=== PATIENT | male | born 1975 | race Caucasian/White ===

== ENCOUNTER 2017-06-16 17:29 | Emergency (ER) | payer MEDICAID ==
[~2017-06-16] VITALS: Ht 182.9 cm; Wt 81.1 kg
[2017-06-16] MEDS ORDERED: ketorolac trometh inj. 60 MG/2 ML VIAL IM ONE (19:20)
[2017-06-16 20:11] VITALS: BP 126/87
== END 2017-06-16 20:13 | disposition home or self-care (01) ==
LOC: ER 17:30
DX: M25.561 Pain in right knee (principal); J45.909 Unspecified asthma, uncomplicated; Z88.2 Allergy status to sulfonamides; Z88.1 Allergy status to other antibiotic agents
CPT/HCPCS: 29505; 73564; 96372; 99284; J1885

== ENCOUNTER 2017-10-28 10:20 | Emergency (ER) | payer MEDICAID ==
[~2017-10-28] VITALS: Ht 182.9 cm; Wt 89.8 kg
== END 2017-10-28 12:43 | disposition home or self-care (01) ==
LOC: ER 10:20
DX: S90.112A Contusion of left great toe without damage to nail, initial encounter (principal); J45.909 Unspecified asthma, uncomplicated; Z98.890 Other specified postprocedural states; Z88.2 Allergy status to sulfonamides; X58.XXXA Exposure to other specified factors, initial encounter; Y93.89 Activity, other specified; Y92.89 Other specified places as the place of occurrence of the external cause; Y99.8 Other external cause status
CPT/HCPCS: 99281

== ENCOUNTER 2018-04-30 10:19 | Emergency (ER) | payer MEDICAID ==
[~2018-04-30] VITALS: Ht 182.9 cm; Wt 88.6 kg
[2018-04-30 10:51] VITALS: BP 138/76
[2018-04-30] MEDS ORDERED: GUAI-178 PO (12:03)
[2018-04-30] MEDS ORDERED: AZIT250T PO (12:03)
== END 2018-04-30 12:18 | disposition home or self-care (01) ==
LOC: ER 10:20
DX: J20.9 Acute bronchitis, unspecified (principal); J45.909 Unspecified asthma, uncomplicated; M19.90 Unspecified osteoarthritis, unspecified site; Z88.2 Allergy status to sulfonamides; Z88.1 Allergy status to other antibiotic agents
CPT/HCPCS: 99281

== ENCOUNTER 2021-05-29 10:02 | Outpatient (CLI) | payer MEDICARE, MEDICAID ==
[~2021-05-29 10:02] MED LIST: ALBU8HFA PO; ASPI-1 PO; BUDE10.2 INH; DICLOFENAC SODIUM TP; LORA10TA7 PO
[2021-05-29 10:30] LABS: ABG BASE EXCESS -0.7 mmol/L (-2.0-2.0); ABG HCO3 22.8 mmol/L (22.0-26.0); ABG OXYGEN SATURATION 95.3 % (94-97); ABG PCO2 (T) 34.7 mmHg (35.0-48.0); ALLEN'S TEST POSITIVE; FCOHb 0.5 % (0.0-3.9); FMetHb 0.3 % (0.0-1.5); FO2Hb 94.5 % (94-97); TOTAL HEMOGLOBIN 14.7 G/dl (14.0-18.0)
== END 2021-05-29 23:59 | disposition home or self-care (01) ==
LOC: RT 10:02
PROVIDERS: ATTEND Internal Medicine Cardiovascular Disease
DX: R94.2 Abnormal results of pulmonary function studies (principal); J44.9 Chronic obstructive pulmonary disease, unspecified; R05.9 Cough, unspecified; R06.02 Shortness of breath
CPT/HCPCS: 36600; 82803; 85018; 94060; 94727; 94729; 94760

== ENCOUNTER 2021-11-04 08:52 | Day surgery (SDC) | payer BC, MEDICAID ==
[2021-10-30 14:16] LABS: BASOPHILS # (AUTO) 0.1 X10'3 (0-0.2); BASOPHILS % (AUTO) 0.7 % (0-1); EOSINOPHILS % (AUTO) 0.4 % (0-6); LYMPHOCYTES % (AUTO) 12.1 % (21-51); MEAN CORPUSCULAR HEMOGLOBIN 28.8 PG (27.0-31.0); MEAN CORPUSCULAR HGB CONC 33.5 g/dL (33.0-36.5); MEAN CORPUSCULAR VOLUME 85.8 FL (78-98); MONOCYTES # (AUTO) 0.6 X10'3 (0-0.9); MONOCYTES % (AUTO) 6.6 % (2-12); NEUTROPHILS # (AUTO) 6.9 X10'3 (1.8-7.7); NEUTROPHILS % (AUTO) 80.2 % (42-75); PRE OP HEMATOCRIT 43.9 % (42.0-52.0); PRE OP HEMOGLOBIN 14.7 g/dL (14.0-17.9); PRE OP PLATELET COUNT 253 X10'3 (140-440); RED BLOOD COUNT 5.12 X10'6 (4.70-6.10); RED CELL DISTRIBUTION WIDTH 15.6 % (11.5-14.5)
[2021-10-30 14:25] LABS: PRE OP PROTIME 10.5 SECONDS (9.0-12.0)
[2021-10-30 14:34] LABS: ALBUMIN 4.2 G/DL (3.4-5.0); ALBUMIN/GLOBULIN RATIO 1.2 (1.1-1.5); ALKALINE PHOSPHATASE 97 IU/L (46-116); BLOOD UREA NITROGEN 4 MG/DL (7-18); BUN/CREATININE RATIO 4.9 (5.4-32.0); CALCIUM 8.6 MG/DL (8.5-10.1); CHLORIDE 103 MMOL/L (99-107); CREATININE 0.81 MG/DL (0.60-1.10); PRE OP ALT 45 U/L (30-65); PRE OP ANION GAP 7 (8-16); PRE OP AST 24 U/L (10-37); PRE OP BILIRUB, TOTAL 0.6 MG/DL (0.0-1.0); PRE OP GLUCOSE 113 MG/DL (70-104); PRE OP POTASSIUM 3.7 MMOL/L (3.4-5.1); PRE OP SODIUM 138 MMOL/L (135-145); TOTAL CARBON DIOXIDE 28.1 MMOL/L (24-32); TOTAL PROTEIN 7.8 G/DL (6.4-8.2); eGFR > 90 ML/MIN
[~2021-11-04] VITALS: Ht 182.9 cm; Wt 98.3 kg
[2021-11-04] VITALS (15 sets, daily range): BP systolic 103–128; BP diastolic 66–91
[~2021-11-04 08:52] MED LIST changes: -ASPI-1 PO; +CELE-85 PO; -DICLOFENAC SODIUM TP; +GABA300C PO; +OMEP20CA16 PO; +ceFAZolin inj. 2,000 MG in dextrose 5%-water 100 ML IV ONE; +famotidine 20mg tablet PO ONE; +ringers solution, lacted 1,000 ML IV SCH; +tranexamic acid 650mg tablet PO ONE; +vancomycin 1,500 MG in NS 300ml IV soln IV ONE; +vancomycin/NS 1 GM in NS 250 ML IV ONE
--- NOTE | 2021-11-04 10:00 | NUR ---
PT CSM INTACT TO BILATERAL LOWER EXT, PT ABLE TO COMPLETE ALL 5 SHOWERS AND OINTMENT, WATCHED ONLINE INFO REGARDING SURGERY. 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
[2021-11-04] MEDS ORDERED: ketorolac trometh. 30mg/ml inj. ONE (12:40)
[2021-11-04] MEDS ORDERED: ROPIVAcaine 0.5% (5mg/ml) 30ml vial ONE ×2 (12:40→14:04)
[2021-11-04] MEDS ORDERED: MIDAZolam 1mg/ml 10ml vial ONE (13:02)
[2021-11-04] MEDS ORDERED: fentaNYL/PF 50MCG/1 ML 2ML syringe ONE (13:02)
[2021-11-04] MEDS ORDERED: morphine 2 MG/ML inj. syringe IV PRN (14:15)
[2021-11-04] MEDS ORDERED: ringers solution, lacted 1,000 ML IV SCH (14:15)
[2021-11-04] MEDS ORDERED: meperidine/PF 25mg/ml syringe IV PRN ×3 (14:15)
[2021-11-04] MEDS ORDERED: proCHLORperazine 10 MG/2 ml inj IV PRN (14:15)
[2021-11-04] MEDS ORDERED: ondansetron/PF 4mg/2ml inj IV PRN ×2 (14:15→15:30)
[2021-11-04] MEDS ORDERED: morphine 4 MG/ML inj SYRINge IV PRN (14:15)
--- NOTE | 2021-11-04 15:12 | NUR ---
Received from OR via BED, accompanied by Anesthesiologist and report given by DR. HERRERA Anesthesiologist. PATIENT WAKING UP, NO S/S OF PAIN, V/S WNL, SCD ON, 18G TO trae JULES to LEFT KNEE CDI. Addendum: 11/04/21 at 1533 by Mark Craig RN Amended: Links added.
[2021-11-04] MEDS ORDERED: naloxone 0.4 mg/ml inj IV PRN (15:30)
[2021-11-04] MEDS ORDERED: diphenhydrAMINE 25mg capsule PO PRN ×2 (15:30)
[2021-11-04] MEDS ORDERED: HYDROmorphone inj. 0.5 MG/0.5 ML DISP.SYRIN IV PRN (15:30)
[2021-11-04] MEDS ORDERED: acetaminophen 325mg tablet PO PRN (15:30)
[2021-11-04] MEDS ORDERED: oxyCODONE IR 5mg (immed. release) tablet PO PRN (15:30)
[2021-11-04] MEDS ORDERED: magnesium hydroxide 30ml (MOM) UD suspension PO PRN (15:30)
[2021-11-04] MEDS ORDERED: bisacodyl 10mg suppository rectal RC PRN (15:30)
[2021-11-04] MEDS ORDERED: HYDROmorphone 1 mg/ml syringe IV PRN (15:30)
--- NOTE | 2021-11-04 16:07 | NUR ---
PATIENT HAS MET ALL CRITERIA FOR TRANSFER TO ORTHO FLOOR. VSS. DRESSINGS INTACT. BED LOW, CALL LIGHT PRESENT AND 2 RAILS UP. RN PRESENT TO ACCEPT CARE OF PATIENT AND REPORT HAS BEEN CALLED. ALL QUESTIONS ANSWERED TO ACCEPTING RN. Addendum: 11/04/21 at 1617 by Mark Craig RN Amended: Links added.
[2021-11-04] MEDS: ceFAZolin/D5W- 1GM premix 50 ML IV SCH (17:50)
--- NOTE | 2021-11-04 18:08 | NUR ---
Report to Johana JACOBS
[2021-11-04] MEDS: albuterol 2.5 MG/3 ML nebule NEB SCH (19:53)
[2021-11-04] MEDS: budesonide 0.5mg/2ml UD nebule IH SCH (19:54)
[2021-11-04] MEDS ORDERED: vancomycin/NS 1 GM ADD-VANTAGE 250 ML IV SCH (20:00)
[2021-11-04] MEDS: acetaminophen 325mg tablet PO SCH (20:24)
[2021-11-04] MEDS: potassium cl 20mEq in 1/2 NS 1,000 ML IV SCH ×2 (20:24→23:30)
[2021-11-04] MEDS: gabapentin 300mg capsule PO SCH (20:24)
[2021-11-04] MEDS ORDERED: sennosides 8.6mg tablet PO SCH (21:00)
[2021-11-05] MEDS: ceFAZolin/D5W- 1GM premix 50 ML IV SCH (00:03)
[2021-11-05] MEDS: albuterol 2.5 MG/3 ML nebule NEB SCH ×3 (02:00→14:00)
[2021-11-05 02:21] VITALS: BP 115/75
[2021-11-05] MEDS: acetaminophen 325mg tablet PO SCH ×3 (02:34→14:17)
[2021-11-05] MEDS: oxyCODONE IR 5mg (immed. release) tablet PO PRN ×3 (05:39→14:17)
[2021-11-05 06:25] VITALS: BP 122/76
--- NOTE | 2021-11-05 06:26 | NUR ---
Received report from REYNALDO Vaughn
[2021-11-05 06:40] LABS: BASOPHILS # (AUTO) 0.1 X10'3 (0-0.2); BASOPHILS % (AUTO) 0.6 % (0-1); EOSINOPHILS % (AUTO) 0.3 % (0-6); HEMATOCRIT 36.1 % (42.0-52.0); HEMOGLOBIN 12.2 g/dl (14.0-17.9); LYMPHOCYTES # (AUTO) 0.7 X10'3 (1.1-4.8); LYMPHOCYTES % (AUTO) 8.5 % (21-51); MEAN CORPUSCULAR HEMOGLOBIN 29.3 PG (27.0-31.0); MEAN CORPUSCULAR HGB CONC 33.9 g/dL (33.0-36.5); MEAN CORPUSCULAR VOLUME 86.3 FL (78-98); MEAN PLATELET VOLUME 9.2 FL (7.4-10.4); MONOCYTES # (AUTO) 0.8 X10'3 (0-0.9); MONOCYTES % (AUTO) 9.2 % (2-12); NEUTROPHILS # (AUTO) 6.6 X10'3 (1.8-7.7); NEUTROPHILS % (AUTO) 81.4 % (42-75); PLATELET COUNT 213 X10'3 (140-440); RED BLOOD COUNT 4.18 X10'6 (4.70-6.10); RED CELL DISTRIBUTION WIDTH 15.3 % (11.5-14.5); WHITE BLOOD COUNT 8.2 X10'3 (4.5-11.0)
[2021-11-05 06:58] LABS: ANION GAP 6 (8-16); CHLORIDE 105 MMOL/L (99-107); POTASSIUM 3.5 MMOL/L (3.5-5.1); SODIUM 139 MMOL/L (135-145); TOTAL CARBON DIOXIDE 27.7 MMOL/L (24-32)
[2021-11-05] MEDS: budesonide 0.5mg/2ml UD nebule IH SCH (07:22)
[2021-11-05] MEDS: potassium cl 20mEq in 1/2 NS 1,000 ML IV SCH ×2 (07:30→15:30)
[2021-11-05] MEDS ORDERED: pantoprazole 40mg Tablet.DR PO SCH (08:00)
[2021-11-05] MEDS ORDERED: loratadine 10mg tablet PO SCH (08:00)
[2021-11-05] MEDS ORDERED: celeCOXIB 100mg capsule PO SCH (08:00)
[2021-11-05] MEDS ORDERED: aspirin 325mg tablet PO SCH (08:30)
[2021-11-05] MEDS: gabapentin 300mg capsule PO SCH ×2 (08:36→14:17)
[2021-11-05 10:27] VITALS: BP 120/79
--- NOTE | 2021-11-05 16:29 | NUR ---
Patient discharged to home via wheelchair to private vehicle with [facility] worker dean. All instructions given to patient and he verbalized understanding. 20 gauge iv removed cannula intact no s/s of phlebitis.
[2021-11-06] MEDS ORDERED: acetaminophen 325mg tablet PO PRN (15:30)
== END 2021-11-05 16:28 | disposition home health service (06) ==
LOC: PACU OUT 08:52 → ORTHO 4S 10:50 → EDSTATUS 14:00 → PAS IN 16:12 → ORTHO 4S 16:12 → PACU OUT 11-05 16:28
PROVIDERS: ATTEND Orthopaedic Surgery
DX: M17.12 Unilateral primary osteoarthritis, left knee (principal); J45.909 Unspecified asthma, uncomplicated; G80.9 Cerebral palsy, unspecified; G89.18 Other acute postprocedural pain; E66.9 Obesity, unspecified; Z68.28 Body mass index [BMI] 28.0-28.9, adult; Z79.899 Other long term (current) drug therapy; Z79.01 Long term (current) use of anticoagulants; Z88.1 Allergy status to other antibiotic agents; Z88.2 Allergy status to sulfonamides; Z98.890 Other specified postprocedural states; Z72.89 Other problems related to lifestyle; Z96.651 Presence of right artificial knee joint
CPT/HCPCS: 27447; 36415; 64447; 76942; 80051; 80053; 82948; 85025; 85610; 85730; 87081; 94640; 94760; 97116; 97161; 97530; C1758; C1776; J0690; J1885; J2250; J2795; J3010; J3370; J3480; J7030; J7040; J7060; J7120; Z7506; Z7508; Z7512; A4215; A7000; G0378

== ENCOUNTER 2023-12-18 19:37 | Emergency (ER) | payer BC, MEDICAID ==
[~2023-12-18] VITALS: Ht 185.4 cm; Wt 96.9 kg
[~2023-12-18 19:37] MED LIST changes: +CELE-127 PO; -CELE-85 PO; -ceFAZolin inj. 2,000 MG in dextrose 5%-water 100 ML IV ONE; -famotidine 20mg tablet PO ONE; -ringers solution, lacted 1,000 ML IV SCH; -tranexamic acid 650mg tablet PO ONE; -vancomycin 1,500 MG in NS 300ml IV soln IV ONE; -vancomycin/NS 1 GM in NS 250 ML IV ONE
[2023-12-18] MEDS: cyclobenzaprine 10mg tablet PO ONE (20:06)
[2023-12-18] MEDS: HYDROcodone/acetaminophen 5mg/325mg tablet PO ONE (20:07)
[2023-12-18] MEDS: dexamethasone sod phosphate 10mg/ml inj IM STA (20:08)
[2023-12-18] MEDS: ketorolac trometh. 30mg/ml inj. IM ONE (20:09)
[2023-12-18] MEDS ORDERED: CYCL-1 PO (20:36)
[2023-12-18] MEDS ORDERED: LIDO700A32 TOP (20:36)
[2023-12-18 20:58] VITALS: BP 118/90; PULSE 95; RESP 16; TEMP 99; O2SAT 96
== END 2023-12-18 21:03 | disposition home or self-care (01) ==
LOC: ER 19:37
DX: S39.012A Strain of muscle, fascia and tendon of lower back, initial encounter (principal); J45.909 Unspecified asthma, uncomplicated; M19.90 Unspecified osteoarthritis, unspecified site; Z88.2 Allergy status to sulfonamides; Z79.899 Other long term (current) drug therapy; Z79.2 Long term (current) use of antibiotics; X58.XXXA Exposure to other specified factors, initial encounter; Y93.89 Activity, other specified; Y92.89 Other specified places as the place of occurrence of the external cause; Y99.8 Other external cause status
CPT/HCPCS: 72100; 96372; 99284; J1100; J1885

== ENCOUNTER 2024-09-03 15:38 | Emergency (ER) | payer BC, MEDICAID ==
[~2024-09-03] VITALS: Ht 185.4 cm; Wt 73.8 kg
[~2024-09-03 15:38] MED LIST changes: +CYCL-1 PO; +LIDO700A32 TOP
[2024-09-03 15:43] VITALS: BP 140/85; PULSE 92; TEMP 98.7; O2SAT 97
--- NOTE | 2024-09-03 16:43 | RADIOLOGY REPORT ---
EXAM: DI SHOULDER, COMPLETE (MIN 2 VWS) CLINICAL HISTORY: shoulder pain COMPARISON: None TECHNIQUE: DI SHOULDER, COMPLETE (MIN 2 VWS) Findings/Impression: 2 views of the left shoulder. There is no evidence of an acute fracture, dislocation, blastic, or lytic lesions. No radiopaque foreign bodies. No joint effusion or superficial soft tissue abnormalities.
[2024-09-03 16:55] VITALS: RESP 16
[2024-09-03] MEDS: HYDROcodone/acetaminophen 10/325mg tab PO ONE (16:55)
[2024-09-03] MEDS ORDERED: HYDR-3973 PO (16:56)
--- NOTE | 2024-09-03 16:58 | Physician Documentation ---
History of Present Illness ~ Chief Complaint: Shoulder pain Stated Complaint: SHOULDER PAIN/ Time Seen by MD: 15:52 OK to notify your PCP?: Yes Primary Medical Doctor: DR. BAIG Source: patient Mode of Arrival: POV Exam Limitations: no limitations HPI 49 y/o left handed male with left shoulder pain x 1week. States has been going to physical therapy for his shoulder pain after having rotator cuff surgery back in February of last year but states that he did something recently in his now having more pain. Pain feels like when he tore his rotator cuff. He has been taking Tylenol for his pain without relief. He was report shows he has also had a prescription for oxycodone but he states he is out of this. Prescription for oxycodone was prescribed about two weeks ago for two week supply. No arm weakness, numbness, loss of AROM. Tetanus within 5 years?: No Medication Reconciliation Allergies: Coded Allergies: Sulfa (Sulfonamide Antibiotics) (Verified Allergy, Unknown, 11/11/14) amoxicillin (Verified Allergy, Unknown, 11/11/14) Scheduled Budesonide/Formoterol Fumarate (Symbicort 160-4.5 Mcg Inhaler), 2 PUFFS INH Q12H, (Reported) Celecoxib (Celecoxib), 1 CAP PO DAILY, (Reported) Cyclobenzaprine* (Cyclobenzaprine*), 1 TAB PO HS Gabapentin (Neurontin), 300 MG PO QHS, (Reported) Lidocaine (Lidoderm), 1 PATCH TOP DAILY Loratadine (Loratadine), 1 TAB PO DAILY, (Reported) Omeprazole (Omeprazole), 1 CAP PO DAILY, (Reported) Scheduled PRN Hydrocodone Bit/Acetaminophen (Hydrocodone-Apap 10-325 Tablet), 1 TAB PO TID PRN PRN for pain albuterol inhaler (Pro-Air Inhaler), 1-2 PUFFS PO Q4H PRN for shortness of breath, (Reported) Past Medical History Past Medical History: No Pertinent History, Asthma, Arthritis Past Surgical History: orthopedic surgeries Alcohol Use: None Drug Use: none Lives with: Other Lives In: Home, Assisted Care, Other Occupation: disabled Review of Systems All Other Systems at this time: Reviewed and Negative Physical Exam Vital Signs: Temperature: 98.7, Source: Temporal, Heart Rate: 92, Respiratory Rate: 15, BP: 140/85, Pulse Oximetry: 97, Weight: 73.800 Physical Exam GENERAL: Alert, no acute distress. HEENT: NCAT, EOMI, PERRL, normal oropharynx, moist oral mucosa. NECK: Supple, trachea midline. CARDIAC: Regular rate and rhythm, no murmurs, rubs, or gallops. PV: Equal distal pulses. No lower extremity edema, cap refill less than 2 seconds. RESPIRATORY: Equal breath sounds, clear to auscultation bilaterally, no respiratory distress. MUSCULOSKELETAL: DECREASED AROM OF LEFT SHOULDER DUE TO PAIN. HOLDING SHOULDER IN ADDUCTION STATES UNABLE TO LIFT ARM OUTWARD IN ABDUCTION DUE TO PAIN. TTP OVER ANTERIOR AND POSTERIOR SHOULDER. Normal gait. NEUROLOGICAL: Awake, alert, and oriented x 3. SKIN: Warm/dry, no pallor, no rash. PSYCH: Alert and appropriate. Affect congruent with mood. Speech is clear. Good eye contact. Progress Results/Orders Results/Orders Orders - JACKSON TORRES Shoulder, Complete (Min 2 Vws) (09/03/24 16:04) Completed Orders - JACKSON TORRES Shoulder, Complete (Min 2 Vws) (09/03/24 16:04) Hydrocodone/Apap 10/325 ([place] 10/325mg (09/03/24 16:45) Medications Received in ER Medications (Trade) Dose Ordered Sig/Brady Route PRN Reason Start Time Stop Time Status Last Admin Dose Admin ([place] 10/325mg tab) 1 tab ONCE ONCE PO 09/03/24 16:45 09/03/24 16:46 DC 09/03/24 16:55 1 TAB Vital Signs 09/03/24 09/03/24 15:43 16:55 Temp 98.7 Pulse 92 Resp 15 16 B/P (MAP) 140/85 Pulse Ox 97 Medical Decision Making Differential Dx:Considerations: Include: AC separation, Adhesive capsulitis, arthritis, Bicipital tendonitis, Calcific tendonitis, Cervical disc disease, Contusion, Dislocation, Fracture: Humerus, Fracture: Scapula, Fracture: Clavicle, Gallbladder Disease, Hematoma, Impingement syndrome, Myocardial infarction, Neurovascular Injury, Rotator cuff injury, SC dislocation, Sprain, Subacromial bursitis Departure Time of Disposition: 16:57 Disposition: 01 HOME / SELF CARE / HOMELESS Impression: Primary Impression: Shoulder pain Qualified Codes: M25.511 - Pain in right shoulder Condition: Stable Discharge Instructions: Shoulder Pain, [id number] Additional Instructions: xray negative for separation or fracture f/u with pcp about MRI since you report if feels like you tore your rotator cuff muscle again do not wear sling longer than a few days as you want to be careful with prolonged immobilization due to risk for frozen shoulder return to er if worsening of symptoms Referrals: NO PRIMARY CARE PROVIDER (PCP) Prescriptions Hydrocodone Bit/Acetaminophen (Hydrocodone-Apap 10-325 Tablet) 10mg/325mg Tablet 1 TAB PO TID PRN PRN for pain for 5 Days, #15 TAB dx: shoulder pain M25.51 Prov: JACKSON TORRES 09/03/24 Education Educated: Patient, Family Educated regarding: diagnosis, treatment, need for follow up Signature Scribe Signature: Rose Attestation: JACKSON GODINEZ Sep 03, 2024 16:57
== END 2024-09-03 17:14 | disposition home or self-care (01) ==
LOC: ER 15:39
DX: M25.512 Pain in left shoulder (principal); Z88.0 Allergy status to penicillin; Z88.2 Allergy status to sulfonamides; Z88.8 Allergy status to other drugs, medicaments and biological substances
CPT/HCPCS: 73030; 99283; A4565

== ENCOUNTER 2025-01-25 19:10 | Emergency (ER) | payer BC, MEDICAID ==
[~2025-01-25] VITALS: Ht 185.4 cm; Wt 95.4 kg
[~2025-01-25 19:10] MED LIST changes: +LIDO-52 TOP; -LIDO700A32 TOP
[2025-01-25 19:19] VITALS: BP 126/98; PULSE 95; O2SAT 99
--- NOTE | 2025-01-25 22:44 | Physician Documentation ---
History of Present Illness ~ Chief Complaint: Arm Pain Stated Complaint: ARM PAIN Time Seen by MD: 22:06 Primary Medical Doctor: DR. BAIG HPI Is a 50-year-old male that presents to the emergency department for evaluation of right shoulder pain times several days. He reports he has a history of cerebral palsy also has a history of left rotator cuff injury. Reports that he is a patient of Dr. Marquis and is scheduled to have the left shoulder repaired. He reports that his right shoulder has started hurting and feels the exact same way as the left shoulder does currently. Patient denies any traumatic injuries has good range of motion but tenderness with arm raise. Patient denies taking any Tylenol or ibuprofen for discomfort. Tetanus within 5 years: No Medication Reconciliation Allergies: Coded Allergies: Sulfa (Sulfonamide Antibiotics) (Verified Allergy, Unknown, 11/11/14) amoxicillin (Verified Allergy, Unknown, 11/11/14) Scheduled Budesonide/Formoterol Fumarate (Symbicort 160-4.5 Mcg Inhaler), 2 PUFFS INH Q12H, (Reported) Celecoxib (Celecoxib), 1 CAP PO DAILY, (Reported) Cyclobenzaprine* (Cyclobenzaprine*), 1 TAB PO HS Gabapentin (Neurontin), 300 MG PO QHS, (Reported) Lidocaine (Lidoderm), 1 PATCH TOP DAILY Loratadine (Loratadine), 1 TAB PO DAILY, (Reported) Omeprazole (Omeprazole), 1 CAP PO DAILY, (Reported) Scheduled PRN albuterol inhaler (Pro-Air Inhaler), 1-2 PUFFS PO Q4H PRN for shortness of breath, (Reported) Past Medical History Past Medical History: No Pertinent History, Asthma, Arthritis Past Surgical History: orthopedic surgeries Alcohol Use: None Drug Use: none Lives with: Other Lives In: Home, Assisted Care, Other Occupation: disabled Review of Systems ROS As stated above in the HPI, otherwise all systems are reviewed and negative. Physical Exam Vital Signs: Temperature: 97.9, Heart Rate: 95, Respiratory Rate: 18, BP: 126/98, Pulse Oximetry: 99, Weight: 95.400 Oxygen Flow Rate: 0 Physical Exam VITALS: Reviewed and as above. GENERAL: Alert, no apparent distress. HEENT: Normocephalic, atraumatic, PERRL, EOMI, dry mucosa, no erythema RESPIRATORY: Lungs clear, normal breath sounds, no respiratory distress. CHEST: No accessory muscle use, no retractions CV: Regular rate, rhythm, no edema, no murmur, No: JVD GI: Soft, non-tender, bowels sounds present, no rebound, guarding, or rigidity BACK: No CVA tenderness, or swelling MUSCULOSKELETAL No deformities, no edema, patient is a 3 range of motion to the right shoulder, weakness with right arm raise. SKIN: Warm and dry, no rash NEURO: Oriented x4, No motor or sensory deficit PSYCH: Normal mood and affect, no agitation Progress Results/Orders Results/Orders Orders - DENISE VANEGAS [facility] Ketorolac Trometh 15mg/Ml Vial (Toradol (01/25/25 22:40) Acetaminophen 325mg Tablet (Tylenol Tabl (01/25/25 22:40) Vital Signs 01/25/25 19:19 Temp 97.9 Pulse 95 Resp 18 B/P (MAP) 126/98 Pulse Ox 99 O2 Flow Rate 0 Medical Decision Making Findings Patient presents for evaluation of pain to the right shoulder. Patient denies any traumatic injuries to the shoulder. Given history, exam and workup patient likely has tissue injury possible rotator cuff tear. I have low suspicion for fracture, dislocation, significant ligamentous injury, septic arthritis, gout flare, new autoimmune arthropathy, or gonococcal arthropathy. I have recommended the patient take ibuprofen every 6 hours for the next 24 hours to help reduce inflammation. Patient will follow up with his primary care provider. We will return to the emergency department with any worsening of his current symptoms or any additional concerning symptoms that we discussed here today i.e. swelling redness warmth increased pain fever chills inability to move the shoulder or any other concerning symptoms. Patient was provided with a Toradol injection and Tylenol here in the emergency department with good improvement. Patient will follow up with his surgeon Dr. Marquis who he is already scheduled to have his left shoulder repaired with. Tylenol ibuprofen as needed for discomfort. She was provided with Tylenol and Toradol tonight prior to discharge from the emergency department please do not take any of her medication tonight. General Diff Dx:Considerations: Include: Abrasion, Contusion, Fracture, Hematoma, Laceration, Malunion, Neurovascular injury, Open fracture, Sprain, Ulcer, Other Shoulder Diff Dx:Consideration: Include: AC separation, Adhesive capsulitis, Arthritis, Bicipital tendonitis, Calcific tendonitis, Cervical disc disease, Contusion, Dislocation, Fracture-humerus, Fracture-scapula, Fracture-clavicle, GB disease, Hematoma, Impingement syndrome, Myocardial infarction, Neurovascular injury, Open fracture-humerus, Open fracture-scapula, Open fracture-clavicle, Rotator cuff injury, SC dislocatoin, Sprain, Subacromial bursitis, Other Departure Disposition: 01 HOME / SELF CARE / HOMELESS Impression: Primary Impression: Right shoulder pain Additional Impressions: Soft tissue injury Rotator cuff dysfunction Condition: Stable Discharge Instructions: Musculoskeletal Pain Additional Instructions: Patient presents for evaluation of pain to the right shoulder. Patient denies any traumatic injuries to the shoulder. Given history, exam and workup patient likely has tissue injury possible rotator cuff tear. I have low suspicion for fracture, dislocation, significant ligamentous injury, septic arthritis, gout flare, new autoimmune arthropathy, or gonococcal arthropathy. I have recommended the patient take ibuprofen every 6 hours for the next 24 hours to help reduce inflammation. Patient will follow up with his primary care provider. We will return to the emergency department with any worsening of his current symptoms or any additional concerning symptoms that we discussed here today i.e. swelling redness warmth increased pain fever chills inability to move the shoulder or any other concerning symptoms. Patient was provided with a Toradol injection and Tylenol here in the emergency department with good improvement. Patient will follow up with his surgeon Dr. Marquis who he is already scheduled to have his left shoulder repaired with. Tylenol ibuprofen as needed for discomfort. She was provided with Tylenol and Toradol tonight prior to discharge from the emergency department please do not take any of her medication tonight. Referrals: NO PRIMARY CARE PROVIDER (PCP) Education Educated: Patient Educated regarding: diagnosis, treatment, need for follow up Signature Scribe Signature: A Attestation: Scribed for Denise Vanegas by MASOUD Hopkins . 01/25/25 22:47 DENISE VANEGAS Jan 25, 2025 22:44
[2025-01-25 22:55] VITALS: RESP 18
[2025-01-25] MEDS: ketorolac trometh 15mg/ml vial 15 MG/ML ML IM ONE (22:55)
[2025-01-25 23:17] VITALS: TEMP 97.9
== END 2025-01-25 23:17 | disposition home or self-care (01) ==
LOC: ER 19:10
DX: S46.002A Unspecified injury of muscle(s) and tendon(s) of the rotator cuff of left shoulder, initial encounter (principal); Z88.0 Allergy status to penicillin; Z88.2 Allergy status to sulfonamides; Z88.8 Allergy status to other drugs, medicaments and biological substances; X58.XXXA Exposure to other specified factors, initial encounter; Y93.89 Activity, other specified; Y92.89 Other specified places as the place of occurrence of the external cause; Y99.8 Other external cause status
CPT/HCPCS: 96372; 99283; J1885

== ENCOUNTER 2025-04-21 09:21 | Emergency (ER) | payer BC, MEDICAID ==
[~2025-04-21] VITALS: Ht 185.4 cm; Wt 99.7 kg
[2025-04-21 09:32] VITALS: TEMP 98.2
--- NOTE | 2025-04-21 09:41 | Physician Documentation ---
History of Present Illness ~ Chief Complaint: Cold, cough & congestion Stated Complaint: POSS PULMONARY EMBOLISM Time Seen by MD: 09:40 Primary Medical Doctor: DR. BAIG HPI Pleasant 50-year-old male that presents to the emergency department for evalua tion of new sore throat with hoarse voice. 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 Patient is not tachycardic in his not overtly tachypneic here in the emergency department. Patient has no chest pain. Patient has new symptoms are sore throat hoarse voice. Patient denies any other symptoms at this time. Patient denies fever chills nausea vomiting diarrhea. No other symptoms reported at this time. Medication Reconciliation Allergies: Coded Allergies: Sulfa (Sulfonamide Antibiotics) (Verified Allergy, Unknown, 04/21/25) amoxicillin (Verified Allergy, Unknown, 04/21/25) Scheduled Budesonide/Formoterol Fumarate (Symbicort 160-4.5 Mcg Inhaler), 2 PUFFS INH Q12H, (Reported) Celecoxib (Celecoxib), 1 CAP PO DAILY, (Reported) Cyclobenzaprine* (Cyclobenzaprine*), 1 TAB PO HS Gabapentin (Neurontin), 300 MG PO QHS, (Reported) Lidocaine (Lidoderm), 1 PATCH TOP DAILY Loratadine (Loratadine), 1 TAB PO DAILY, (Reported) Omeprazole (Omeprazole), 1 CAP PO DAILY, (Reported) Scheduled PRN albuterol inhaler (Pro-Air Inhaler), 1-2 PUFFS PO Q4H PRN for shortness of breath, (Reported) Past Medical History Past Medical History: No Pertinent History, Asthma, Arthritis Past Surgical History: orthopedic surgeries Alcohol Use: None Drug Use: none Lives with: Other Lives In: Home, Assisted Care, Other Occupation: disabled Review of Systems ROS As stated above in the HPI, otherwise all systems are reviewed and negative. Physical Exam Vital Signs: Temperature: 98.2, Source: Temporal, Heart Rate: 98, Respiratory Rate: 20, BP: 121/83, Pulse Oximetry: 98, Weight: 99.700 Oxygen Flow Rate: 0 Physical Exam VITALS: Reviewed and as above. GENERAL: Alert, no apparent distress. HEENT: Normocephalic, atraumatic, PERRL, EOMI, dry mucosa, mild erythema noted no tonsillar enlargement noted on examination. RESPIRATORY: Lungs clear, normal breath sounds, no respiratory distress. 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 Chest,Single View (04/21/25 09:37) Covid19 Binax Poc Result Entry (04/21/25 09:39) Urinalysis, Cult If Indicated (04/21/25 11:28) Completed Orders - DENISE VANEGAS MOLD [employer] PUSHER Chest,Single View (04/21/25 09:37) Cbc/Diff (04/21/25 09:37) Electrocardiogram (04/21/25 09:37) CMP (04/21/25 09:37) Influenza Type A&B Rapid Test (04/21/25 09:39) Vital Signs 04/21/25 04/21/25 09:32 10:00 Temp 98.2 Pulse 98 Resp 20 12 B/P (MAP) 121/83 Pulse Ox 98 O2 Flow Rate 0 Laboratory Tests Test 04/21/25 09:47 04/21/25 09:57 Influenza Type A Antigen Negative Influenza Type B Antigen Negative White Blood Count 10.1 Red Blood Count 5.40 Hemoglobin 15.8 Hematocrit 47.2 Mean Corpuscular Volume 87.5 Mean Corpuscular Hemoglobin 29.2 Mean Corpuscular Hemoglobin Concent 33.4 Red Cell Distribution Width 14.8 H Platelet Count 238 Mean Platelet Volume 8.8 Neutrophils (%) (Auto) 76.9 H Lymphocytes (%) (Auto) 12.0 L Monocytes (%) (Auto) 8.0 Eosinophils (%) (Auto) 2.3 Basophils (%) (Auto) 0.8 Neutrophils # (Auto) 7.8 H Lymphocytes # (Auto) 1.2 Monocytes # (Auto) 0.8 Eosinophils # (Auto) 0.2 Basophils # (Auto) 0.1 CBC Comment Sodium Level 140 Potassium Level 4.6 Chloride Level 103 Carbon Dioxide Level 30.1 Anion Gap 7 L Blood Urea Nitrogen 8 Creatinine 0.81 Estimated GFR/1.73 m2 > 90 BUN/Creatinine Ratio 9.9 L Glucose Level 126 H Calcium Level 9.1 Total Bilirubin 0.3 Aspartate Amino Transf (AST/SGOT) 46 H Alanine Aminotransferase (ALT/SGPT) 67 Alkaline Phosphatase 130 H Total Protein 7.9 Albumin 4.1 Globulin 3.8 Albumin/Globulin Ratio 1.1 Chemistry Comments SARS-CoV-2 Antigen (Rapid) Negative Medical Decision Making Additional information obtaine: other Findings Chief Complaint: Sore throat with hoarse voice History of Present Illness: 50-year-old male with history of asthma presents to the emergency department with new-onset sore throat and hoarse voice. Patient denies difficulty breathing, fever, chills, chest pain, nausea, vomiting, or diarrhea. Patient reports baseline tachypnea related to asthma, which boiler operator confirms is unchanged from baseline. Patient denies any new respiratory symptoms. Physical Examination: Patient is not tachycardic and not overtly tachypneic in the emergency department. Respiratory status unchanged from baseline per patient and boiler operator report. Diagnostic Studies: Laboratory studies: No abnormalities or concerning findings Chest X-ray: Normal 12-lead electrocardiogram: Normal Medical Decision Making: Number of Diagnoses/Management Options: Moderate complexity. Patient presents with acute pharyngitis with hoarseness in the setting of chronic asthma. Differential diagnosis includes viral pharyngitis, bacterial pharyngitis (group A Streptococcus), and less likely serious throat infections. Amount/Complexity of Data: Limited. Laboratory studies, chest X-ray, and electrocardiogram reviewed and unremarkable. Risk of Complications: Low. Patient presents with sore throat and hoarseness, which are consistent with viral pharyngitis. The presence of hoarseness strongly suggests a viral etiology rather than bacterial infection, as patients with sore throat accompanied by hoarseness, cough, nasal congestion, or other associated symptoms are more likely to have viral illness and do not warrant testing for group A Streptococcus. Most dysphonia related to upper respiratory tract infection resolves spontaneously within 7-10 days. The patient does not meet criteria for bacterial pharyngitis testing, as he lacks fever, tonsillar exudates, tender anterior cervical adenopathy, and has hoarseness (a viral symptom). The patient does not exhibit signs of serious throat infections such as difficulty swallowing, drooling, neck tenderness, or swelling that would warrant concern for peritonsillar abscess, parapharyngeal abscess, epiglottitis, or Lemierre syndrome. Regarding the patient's asthma, his respiratory status is at baseline per patient and boiler operator report, with no new respiratory symptoms, normal vital signs in the emergency department, and normal chest X-ray. The patient does not meet criteria for hospital admission for asthma exacerbation. Assessment and Plan: Diagnosis: Acute viral pharyngitis with hoarseness (viral laryngitis) Plan: Symptomatic management: Patient advised to use analgesic therapy including acetaminophen, nonsteroidal anti-inflammatory drugs, or throat lozenges for pain relief. No antibiotics indicated: Antibiotics are not recommended as the clinical presentation is consistent with viral pharyngitis. Voice rest: Patient counseled on voice rest and avoidance of whispering to facilitate recovery. Expected course: Symptoms typically resolve within 7-10 days. Return precautions: Patient instructed to return if symptoms worsen, difficulty breathing develops, difficulty swallowing or drooling occurs, or hoarseness persists beyond 2-3 weeks. Asthma management: Continue current asthma regimen. Patient's respiratory status is at baseline with no evidence of exacerbation. Follow-up: Routine follow-up with primary care provider as needed. Disposition: Discharge home in stable condition. Differential Dx:Considerations: Include: Allergic rhinitis, Influenza, Otitis media, Peritonsillar abscess, Pharyngitis-Diphtheria, Pharyngitis-Streptoccal, Pharyngitis-Viral, Pneumonia, Pnuemonitis, Sinusitis, URI, Other Departure Disposition: 01 HOME / SELF CARE / HOMELESS Impression: Primary Impression: Viral pharyngitis Condition: Stable Discharge Instructions: Pharyngitis, Vlyv-oh-Ciue Additional Instructions: Your Diagnosis: Viral Pharyngitis (Viral Sore Throat) with Hoarseness What This Means: Your sore throat and hoarse voice are caused by a viral infection, similar to a common cold. This is not a bacterial infection, so antibiotics will not help and are not needed. Your COVID-19, influenza, and strep throat tests were all negative. Most viral sore throats get better on their own within less than one week. How to Feel Better at Home: For Pain and Discomfort: Take gbxa-oqu-aslqazz pain relievers such as ibuprofen (Advil, Motrin) or acetaminophen (Tylenol) as directed on the package Use throat lozenges or cough drops for temporary relief Gargle with warm salt water (mix 1/4 to 1/2 teaspoon of salt in 8 ounces of warm water) General Care: Get plenty of rest Drink lots of fluids to stay hydrated Avoid whispering, as this can strain your voice more than normal talking Try to rest your voice when possible Your Asthma: Continue taking your regular asthma medications as prescribed Your breathing is at your normal baseline and does not require any changes to your asthma treatment at this time What to Expect: Your symptoms should gradually improve over the next 7-10 days. The hoarseness may take a bit longer to fully resolve. It is normal for nasal discharge to be yellow or green during a viral infectionthis does not mean you need antibiotics. When to Return to the Emergency Department: Come back to the emergency department or call 911 if you develop any of these symptoms: Difficulty breathing or shortness of breath that is worse than your usual asthma symptoms Difficulty swallowing or inability to swallow your saliva Drooling Severe pain that is not relieved by gkqy-yaa-crzvrpo pain medications Neck swelling, tenderness, or stiffness High fever (temperature over 101F or 38.3C) that does not improve with medication Symptoms that get significantly worse instead of better Hoarseness that lasts longer than 2-3 weeks Any new symptoms that concern you Follow-Up Care: Follow up with your primary care provider as needed If your hoarseness does not improve within 2-3 weeks, contact your primary care provider for further evaluation Important Reminders: Do not take antibiotics for this illnessthey will not help viral infections and may cause side effects Finish any vvas-qlk-dhclwmf medications as directed on the package Wash your hands frequently to prevent spreading the virus to others Cover your mouth when coughing or sneezing If you have any questions or concerns, please contact your primary care provi mari. Referrals: NO PRIMARY CARE PROVIDER (PCP) Education Educated: Patient Educated regarding: diagnosis, treatment, need for follow up Signature Scribe Signature: A Attestation: Scribed for Denise Vanegas by MASOUD Hopkins . 04/21/25 12:01 DENISE VANEGAS Apr 21, 2025 09:41
--- NOTE | 2025-04-21 09:50 | ELECTROCARDIOGRAPH REPORT ---
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 KENYA Reyna Measurements Intervals [place] Rate: 96 P: 45 TX: 143 QRS: 85 QRSD: 87 T: 60 QT: 344 QTc: 435 Interpretive Statements Sinus rhythm Electronically Signed On 04-22-2025 19:39:[address] KENYA eRyna Please click the below link to view image of tracing.
--- NOTE | 2025-04-21 09:55 | RADIOLOGY REPORT ---
CLINICAL HISTORY: CP TECHNIQUE: Single view of the chest was obtained. COMPARISON: None FINDINGS: The heart size and pulmonary vasculature are normal. The lungs are clear. IMPRESSION: NO ACUTE CARDIOPULMONARY PROCESS.
[2025-04-21 10:13] LABS: MEAN PLATELET VOLUME 8.8 FL (7.4-10.4); RED CELL DISTRIBUTION WIDTH 14.8 % (11.5-14.5)
[2025-04-21 10:32] LABS: CREATININE 0.81 MG/DL (0.60-1.10); TOTAL CARBON DIOXIDE 30.1 MMOL/L (24-32); eCRCL 123 ML/MIN; eGFR > 90 ML/MIN
[2025-04-21 10:32] LABS: INFLUENZA TYPE A ANTIGEN RAPID NEGATIVE (Negative); INFLUENZA TYPE B ANTIGEN RAPID NEGATIVE (Negative)
[2025-04-21 12:28] VITALS: BP 123/85; PULSE 89; RESP 11; O2SAT 95
== END 2025-04-21 12:30 | disposition home or self-care (01) ==
LOC: ER 09:23
DX: J02.8 Acute pharyngitis due to other specified organisms (principal); B97.89 Other viral agents as the cause of diseases classified elsewhere; J45.909 Unspecified asthma, uncomplicated; Z88.0 Allergy status to penicillin; Z88.2 Allergy status to sulfonamides; Z88.8 Allergy status to other drugs, medicaments and biological substances; Z20.822 Contact with and (suspected) exposure to COVID-19; Z79.899 Other long term (current) drug therapy
CPT/HCPCS: 36415; 71045; 80053; 85025; 87804; 87811; 93005; 96365; 96375; 99285